=== PATIENT | female | born 1980 | race Hispanic/Latino ===

== ENCOUNTER 2017-07-19 20:33 | Emergency (ER) | payer SELFPAY ==
[~2017-07-19] VITALS: Ht 149.9 cm; Wt 75.0 kg
[~2017-07-19 20:33] MED LIST: FE TABS325 MG PO; FERR SULFATE325 MG PO; FLEXERIL PO; IBUPROFEN600 MG PO; LORTAB 5/3255 MG PO; MACRODANTIN100 MG PO; METFORMIN500 MG PO; NAPROSYN500 MG PO; NO; PRENATA3; PRENATABS FA PO; PRILOSEC20 MG/CAP PO; ULTRAM50 M1 PO; ZOFRAN ODT8 MG SL
[2017-07-19 21:12] LABS: URINE BILIRUBIN - DIPSTICK NEGATIVE (NEGATIVE); URINE BLOOD DIPSTICK NEGATIVE (NEGATIVE); URINE COLOR YELLOW; URINE GLUCOSE - DIPSTICK NEGATIVE (NEGATIVE); URINE KETONE NEGATIVE (NEGATIVE); URINE LEUK ESTERASE NEGATIVE (NEGATIVE); URINE NITRITE - DIPSTICK NEGATIVE (Negative); URINE PH 6.5 (4.5-8.0); URINE PROTEIN - DIPSTICK NEGATIVE (NEG-TRACE); URINE SPECIFIC GRAVITY >=1.030; URINE UROBILINOGEN - DIPSTICK 0.2 E.U./dL (0.2)
[2017-07-19 21:14] LABS: URINE CLARITY CLEAR
[2017-07-19 21:42] LABS: HEMATOCRIT 37.3 % (37.0-47.0); HEMOGLOBIN 12.2 g/dl (12.0-16.0); IMMATURE GRANULOCYTES 0.2 % (0.0-1.0); MEAN CELL VOLUME 84.6 fL CALC (80.0-100.0); MEAN CORPUSCULAR HGB 27.7 pG CALC (26.0-32.0); MEAN CORPUSCULAR HGB CONC 32.7 g/L CALC (32.0-36.0); NEUT# 5.12 thou/uL (2.00-7.15); RED BLOOD COUNT 4.41 mill/uL (4.20-5.60); RED CELL DISTRI WIDTH 14.5 % (11.5-15.5)
[2017-07-19 22:09] LABS: ALBUMIN 3.7 g/dL (3.2-5.0); ALKALINE PHOSPHATASE 72 u/l (38-126); ANION GAP 17 (6-22 (CALC)); BILIRUBIN, TOTAL 0.3 mg/dL (0.0-1.4); BUN 15 mg/dL (7-17); BUN/CREATININE RATIO 21 (12-20 (CALC)); CARBON DIOXIDE 23 mmol/l (22-30); CHLORIDE 106 mmol/l (95-108); CREATININE 0.7 mg/dL (0.5-1.0); GFR > 60 ML/MIN (>=60 (CALC)); GFR FOR AFR.AMER. > 60 ML/MIN (>=60 (CALC)); POTASSIUM 4.3 mmol/l (3.5-5.1); SGOT/AST 13 u/l (14-36); SGPT/ALT 29 u/l (9-52); SODIUM 142 mmol/l (137-146)
[2017-07-19 22:25] LABS: BETA-HCG, QUANT(RESULT NUMBER) 402 mIU/mL
[2017-07-19 22:52] VITALS: BP 139/83
[2017-07-19] MEDS ORDERED: VITA-NATAL PO (22:57)
== END 2017-07-19 23:07 | disposition home or self-care (01) | DRG 552 ==
LOC: ED 20:33
PROVIDERS: Emergency Medicine
DX: M54.5 Low back pain (principal); Z33.1 Pregnant state, incidental

== ENCOUNTER 2017-07-21 18:31 | Emergency (ER) | payer SELFPAY ==
[~2017-07-21] VITALS: Ht 149.9 cm; Wt 75.9 kg
[~2017-07-21 18:31] MED LIST changes: +VITA-NATAL PO
[2017-07-21 18:43] VITALS: BP 132/83
== END 2017-07-21 19:10 | disposition left against medical advice (07) | DRG 392 ==
LOC: ED 18:31
DX: R10.32 Left lower quadrant pain (principal); Z91.19 Patient's noncompliance with other medical treatment and regimen

== ENCOUNTER 2018-12-15 06:34 | Emergency (ER) | payer OTHER ==
[~2018-12-15] VITALS: Ht 149.9 cm; Wt 78.1 kg
[2018-12-15 07:09] LABS: URINE BLOOD DIPSTICK LARGE (NEGATIVE); URINE GLUCOSE - DIPSTICK NEGATIVE (NEGATIVE); URINE KETONE >=80 mg/dL (NEGATIVE); URINE LEUK ESTERASE NEGATIVE (NEGATIVE); URINE NITRITE - DIPSTICK NEGATIVE (Negative); URINE PH 6.5 (4.5-8.0); URINE PROTEIN - DIPSTICK 30 mg/dL (NEG-TRACE); URINE SPECIFIC GRAVITY >=1.030
[2018-12-15 07:11] LABS: URINE BILIRUBIN - DIPSTICK NEGATIVE (NEGATIVE); URINE COLOR DK. YELLOW
[2018-12-15 07:15] LABS: URINE RBC >100 RBC/hpf (0-5); URINE SQUAMOUS EPITHELIAL CELL FEW EPI/hpf (0-FEW)
[2018-12-15] MEDS ORDERED: MACRODANTIN100 MG PO (07:21)
[2018-12-15 07:29] VITALS: BP 128/66
== END 2018-12-15 07:36 | disposition home or self-care (01) ==
LOC: ED 06:34
PROVIDERS: Family Medicine
DX: O99.89 Other specified diseases and conditions complicating pregnancy, childbirth and the puerperium (principal); R31.9 Hematuria, unspecified; M54.5 Low back pain; Z3A.30 30 weeks gestation of pregnancy

== ENCOUNTER 2019-01-03 07:40 | Emergency (ER) | payer OTHER ==
[~2019-01-03] VITALS: Ht 149.9 cm; Wt 75.0 kg
[2019-01-03] MEDS ORDERED: GLUCOSE METER T1 TES EX (08:02)
[2019-01-03 08:07] VITALS: BP 104/71
== END 2019-01-03 08:14 | disposition home or self-care (01) ==
LOC: ED 07:40
DX: O09.523 Supervision of elderly multigravida, third trimester (principal); Z3A.32 32 weeks gestation of pregnancy

== ENCOUNTER 2020-02-24 16:49 | Emergency (ER) | payer OTHER ==
[~2020-02-24] VITALS: Ht 149.9 cm; Wt 80.0 kg
[~2020-02-24 16:49] MED LIST changes: +GLUCOSE METER T1 TES EX
[2020-02-24 18:03] LABS: HEMATOCRIT 33.6 % (37.0-47.0); HEMOGLOBIN 10.4 g/dl (12.0-16.0); IMMATURE GRANULOCYTES 0.4 % (0.0-5.0); MEAN CORPUSCULAR HGB 23.5 pG CALC (26.0-32.0); NEUT# 6.99 thou/uL (2.00-7.15); RED BLOOD COUNT 4.42 mill/uL (4.20-5.60); RED CELL DISTRI WIDTH 15.1 % (11.5-15.5)
[2020-02-24 18:32] LABS: ALKALINE PHOSPHATASE 93 u/l (38-126); ANION GAP 10 (6-22 (CALC)); BILIRUBIN, TOTAL 0.2 mg/dL (0.0-1.4); BUN 15 mg/dL (7-17); BUN/CREATININE RATIO 28 (12-20 (CALC)); CARBON DIOXIDE 25 mmol/l (22-30); CHLORIDE 107 mmol/l (95-108); CREATININE 0.5 mg/dL (0.5-1.0); GFR > 60 ML/MIN (>=60 (CALC)); GFR FOR AFR.AMER. > 60 ML/MIN (>=60 (CALC)); POTASSIUM 3.7 mmol/l (3.5-5.1); SGOT/AST 18 u/l (14-36); SODIUM 139 mmol/l (137-146); TOTAL PROTEIN 7.4 g/dL (6.3-8.2)
[2020-02-24 18:40] LABS: URINE BILIRUBIN - DIPSTICK NEGATIVE (NEGATIVE); URINE BLOOD DIPSTICK LARGE (NEGATIVE); URINE COLOR YELLOW; URINE GLUCOSE - DIPSTICK NEGATIVE (NEGATIVE); URINE KETONE NEGATIVE (NEGATIVE); URINE LEUK ESTERASE NEGATIVE (NEGATIVE); URINE NITRITE - DIPSTICK NEGATIVE (Negative); URINE PH 6.5 (4.5-8.0); URINE PROTEIN - DIPSTICK NEGATIVE (NEG-TRACE); URINE SPECIFIC GRAVITY 1.025; URINE UROBILINOGEN - DIPSTICK 0.2 E.U./dL (0.2)
[2020-02-24 18:48] LABS: BETA-HCG, QUANT(RESULT NUMBER) 11878 mIU/mL
[2020-02-24 18:48] LABS: URINE SQUAMOUS EPITHELIAL CELL FEW EPI/hpf (0-FEW)
[2020-02-24 19:53] VITALS: BP 128/76
== END 2020-02-24 19:52 | disposition home or self-care (01) ==
LOC: ED 16:49
PROVIDERS: Family Medicine
DX: O20.9 Hemorrhage in early pregnancy, unspecified (principal); Z3A.00 Weeks of gestation of pregnancy not specified

== ENCOUNTER 2020-09-18 22:28 | Emergency (ER) | payer OTHER ==
[~2020-09-18] VITALS: Ht 149.9 cm; Wt 79.5 kg
[2020-09-18 23:19] LABS: HEMATOCRIT 36.3 % (37.0-47.0); HEMOGLOBIN 11.1 g/dl (12.0-16.0); IMMATURE GRANULOCYTES 0.4 % (0.0-5.0); MEAN CELL VOLUME 75.8 fL CALC (80.0-100.0); MEAN CORPUSCULAR HGB 23.2 pG CALC (26.0-32.0); MEAN CORPUSCULAR HGB CONC 30.6 g/dL CAL (32.0-36.0); NEUT# 5.7 thou/uL (2.00-7.15); RED BLOOD COUNT 4.79 mill/uL (4.20-5.60); RED CELL DISTRI WIDTH 17.2 % (11.5-15.5)
[2020-09-18 23:48] LABS: ALBUMIN 4.4 g/dL (3.2-5.0); ALKALINE PHOSPHATASE 103 u/l (38-126); AMYLASE 78 u/l (30-110); ANION GAP 16 (6-22 (CALC)); BILIRUBIN, TOTAL 0.2 mg/dL (0.0-1.4); BUN 14 mg/dL (7-17); BUN/CREATININE RATIO 26 (12-20 (CALC)); CARBON DIOXIDE 21 mmol/l (22-30); CHLORIDE 109 mmol/l (95-108); CREATININE 0.6 mg/dL (0.5-1.0); GFR > 60 ML/MIN (>=60 (CALC)); GFR FOR AFR.AMER. > 60 ML/MIN (>=60 (CALC)); LIPASE 166 u/l (23-300); POTASSIUM 4.1 mmol/l (3.5-5.1); SGOT/AST 25 u/l (14-36); SODIUM 141 mmol/l (137-146); TOTAL PROTEIN 8.2 g/dL (6.3-8.2)
[2020-09-18 23:55] LABS: BETA-HCG, QUANT(RESULT NUMBER) 1895 mIU/mL
[2020-09-19 01:25] VITALS: BP 116/65
== END 2020-09-19 01:26 ==
LOC: ED 22:28
PROVIDERS: Family Medicine
DX: O20.9 Hemorrhage in early pregnancy, unspecified (principal); O26.899 Other specified pregnancy related conditions, unspecified trimester; R10.2 Pelvic and perineal pain; Z3A.00 Weeks of gestation of pregnancy not specified

== ENCOUNTER 2020-09-26 11:50 | Emergency (ER) | payer OTHER ==
[~2020-09-26] VITALS: Ht 149.9 cm; Wt 80.4 kg
[2020-09-26 13:13] LABS: HEMATOCRIT 32.6 % (37.0-47.0); HEMOGLOBIN 10.2 g/dl (12.0-16.0); IMMATURE GRANULOCYTES 0.4 % (0.0-5.0); MEAN CELL VOLUME 76.7 fL CALC (80.0-100.0); MEAN CORPUSCULAR HGB CONC 31.3 g/dL CAL (32.0-36.0); NEUT# 6.07 thou/uL (2.00-7.15); RED BLOOD COUNT 4.25 mill/uL (4.20-5.60); RED CELL DISTRI WIDTH 16.9 % (11.5-15.5)
[2020-09-26 13:19] LABS: ALBUMIN 3.9 g/dL (3.2-5.0); ALKALINE PHOSPHATASE 102 u/l (38-126); ANION GAP 11 (6-22 (CALC)); BILIRUBIN, TOTAL 0.2 mg/dL (0.0-1.4); BUN 15 mg/dL (7-17); BUN/CREATININE RATIO 35 (12-20 (CALC)); CHLORIDE 106 mmol/l (95-108); CREATININE 0.4 mg/dL (0.5-1.0); GFR > 60 ML/MIN (>=60 (CALC)); GFR FOR AFR.AMER. > 60 ML/MIN (>=60 (CALC)); LIPASE 95 u/l (23-300); POTASSIUM 4.1 mmol/l (3.5-5.1); SGOT/AST 42 u/l (14-36); SODIUM 139 mmol/l (137-146); TOTAL PROTEIN 7.5 g/dL (6.3-8.2)
[2020-09-26 13:20] LABS: CARBON DIOXIDE 26 mmol/l (22-30)
[2020-09-26 13:36] LABS: BETA-HCG, QUANT(RESULT NUMBER) 1934 mIU/mL
[2020-09-26 13:44] LABS: URINE BILIRUBIN - DIPSTICK NEGATIVE (NEGATIVE); URINE BLOOD DIPSTICK NEGATIVE (NEGATIVE); URINE COLOR YELLOW; URINE GLUCOSE - DIPSTICK NEGATIVE (NEGATIVE); URINE KETONE NEGATIVE (NEGATIVE); URINE LEUK ESTERASE TRACE (NEGATIVE); URINE PROTEIN - DIPSTICK NEGATIVE (NEG-TRACE); URINE UROBILINOGEN - DIPSTICK 0.2 E.U./dL (0.2)
[2020-09-26 13:46] LABS: URINE NITRITE - DIPSTICK NEGATIVE (Negative)
[2020-09-26 15:46] VITALS: BP 115/61
== END 2020-09-26 15:59 | disposition home or self-care (01) ==
LOC: ED 11:50
DX: O26.899 Other specified pregnancy related conditions, unspecified trimester (principal); R10.31 Right lower quadrant pain; R10.32 Left lower quadrant pain; Z3A.00 Weeks of gestation of pregnancy not specified

== ENCOUNTER 2020-12-05 17:32 | Emergency (ER) | payer OTHER ==
[~2020-12-05] VITALS: Ht 149.9 cm; Wt 77.0 kg
[2020-12-05 19:19] LABS: URINE BILIRUBIN - DIPSTICK NEGATIVE (NEGATIVE); URINE BLOOD DIPSTICK NEGATIVE (NEGATIVE); URINE COLOR YELLOW; URINE GLUCOSE - DIPSTICK NEGATIVE (NEGATIVE); URINE KETONE NEGATIVE (NEGATIVE); URINE LEUK ESTERASE SMALL (Negative); URINE NITRITE - DIPSTICK NEGATIVE (Negative); URINE PROTEIN - DIPSTICK NEGATIVE (NEG-TRACE); URINE SPECIFIC GRAVITY 1.025; URINE UROBILINOGEN - DIPSTICK 0.2 E.U./dL (0.2)
[2020-12-05 19:28] LABS: URINE CLARITY HAZY
[2020-12-05 19:29] LABS: URINE SQUAMOUS EPITHELIAL CELL MODERATE EPI/hpf (0-FEW)
[2020-12-05 19:39] LABS: HEMATOCRIT 34.7 % (37.0-47.0); HEMOGLOBIN 10.4 g/dl (12.0-16.0); IMMATURE GRANULOCYTES 0.4 % (0.0-5.0); MEAN CELL VOLUME 77.1 fL CALC (80.0-100.0); MEAN CORPUSCULAR HGB 23.1 pG CALC (26.0-32.0); NEUT# 6.44 thou/uL (2.00-7.15); RED BLOOD COUNT 4.5 mill/uL (4.20-5.60); RED CELL DISTRI WIDTH 17.6 % (11.5-15.5)
[2020-12-05 19:54] LABS: ALBUMIN 4.1 g/dL (3.2-5.0); ANION GAP 13 (6-22 (CALC)); BILIRUBIN, TOTAL 0.2 mg/dL (0.0-1.4); BUN 16 mg/dL (7-17); BUN/CREATININE RATIO 30 (12-20 (CALC)); CARBON DIOXIDE 24 mmol/l (22-30); CHLORIDE 105 mmol/l (95-108); CREATININE 0.5 mg/dL (0.5-1.0); GFR > 60 ML/MIN (>=60 (CALC)); GFR FOR AFR.AMER. > 60 ML/MIN (>=60 (CALC)); POTASSIUM 4.1 mmol/l (3.5-5.1); SODIUM 138 mmol/l (137-146); TOTAL PROTEIN 7.4 g/dL (6.3-8.2)
[2020-12-05 19:55] LABS: ALKALINE PHOSPHATASE 85 u/l (38-126); SGOT/AST 23 u/l (14-36)
[2020-12-05 20:10] LABS: BETA-HCG, QUANT(RESULT NUMBER) 1284 mIU/mL
[2020-12-05] MEDS ORDERED: PRE-NATAL PO (20:25)
[2020-12-05] MEDS ORDERED: ASPIRIN ADULT L81 M2 PO (20:25)
[2020-12-05 20:58] VITALS: BP 120/70
== END 2020-12-05 20:58 | disposition home or self-care (01) ==
LOC: ED 17:32
DX: O26.899 Other specified pregnancy related conditions, unspecified trimester (principal); R10.31 Right lower quadrant pain; Z3A.00 Weeks of gestation of pregnancy not specified